=== PATIENT | female | born 1985 | race Caucasian/White ===

== ENCOUNTER 2017-07-05 10:36 | Emergency (ER) | payer OTHER ==
[2017-07-05 11:14] LABS: APPEARANCE HAZY (CLEAR); BILIRUBIN NEGATIVE (NEGATIVE); COLOR YELLOW (YELLOW); GLUCOSE NEGATIVE (NEGATIVE); KETONE NEGATIVE (NEGATIVE); NITRITE NEGATIVE (NEGATIVE); PROTEIN TRACE mg/dL (NEGATIVE); UROBILINOGEN NORMAL (NORMAL)
[2017-07-05 11:15] LABS: BACTERIA MODERATE /hpf (NONE SEEN); MUCUS <1+ /lpf (NONE SEEN); RED CELLS - URINE 0-5 /hpf (0-5); WHITE CELLS - URINE 0-5 /hpf (0-5)
== END 2017-07-05 12:13 | disposition home or self-care (01) ==
LOC: D.ER 10:36
PROVIDERS: Family Medicine
DX: N39.0 Urinary tract infection, site not specified (principal); R10.9 Unspecified abdominal pain; F17.200 Nicotine dependence, unspecified, uncomplicated

== ENCOUNTER 2018-07-10 18:07 | Emergency (ER) | payer OTHER ==
[~2018-07-10] VITALS: Ht 157.5 cm; Wt 77.7 kg
[2018-07-10 18:38] VITALS: Ht 157.5 cm; Wt 77.7 kg
[2018-07-10 18:54] LABS: APPEARANCE CLOUDY (CLEAR); BILIRUBIN NEGATIVE (NEGATIVE); COLOR YELLOW (YELLOW); GLUCOSE NEGATIVE (NEGATIVE); KETONE NEGATIVE (NEGATIVE); NITRITE NEGATIVE (NEGATIVE); PROTEIN TRACE mg/dL (NEGATIVE); UROBILINOGEN NORMAL (NORMAL)
[2018-07-10 18:56] LABS: BACTERIA MODERATE /hpf (NONE SEEN); RED CELLS - URINE 0-5 /hpf (0-5)
[2018-07-10] MEDS ORDERED: PHENAZOPYRIDIN200 MG PO (20:03)
[2018-07-10] MEDS ORDERED: VOLTAREN75 MG PO (20:03)
[2018-07-10] MEDS ORDERED: CIPRO500 MG PO (20:03)
[2018-07-10 20:19] VITALS: BP 120/71
== END 2018-07-10 20:19 | disposition home or self-care (01) ==
LOC: D.ER 18:07
PROVIDERS: Family Medicine
DX: N39.0 Urinary tract infection, site not specified (principal); R30.0 Dysuria; R35.0 Frequency of micturition; R50.9 Fever, unspecified; I50.9 Heart failure, unspecified; F17.200 Nicotine dependence, unspecified, uncomplicated

== ENCOUNTER 2019-12-29 18:20 | Emergency (ER) | payer OTHER ==
[~2019-12-29] VITALS: Ht 157.5 cm; Wt 87.3 kg
[~2019-12-29 18:20] MED LIST: CIPRO500 MG PO; PHENAZOPYRIDIN200 MG PO; VOLTAREN75 MG PO
[2019-12-29 18:41] VITALS: Ht 157.5 cm; Wt 87.3 kg
[2019-12-29] MEDS ORDERED: PHENAZOPYRIDIN200 MG PO (21:14)
[2019-12-29] MEDS ORDERED: MACROBID100 MG PO (21:14)
[2019-12-29 21:47] VITALS: BP 128/76
== END 2019-12-29 21:47 | disposition home or self-care (01) ==
LOC: D.ER 18:20
DX: N39.0 Urinary tract infection, site not specified (principal); R30.0 Dysuria; I50.9 Heart failure, unspecified; R34 Anuria and oliguria

== ENCOUNTER 2021-01-21 21:15 | Emergency (ER) | payer OTHER ==
[~2021-01-21] VITALS: Ht 157.5 cm; Wt 90.9 kg
[~2021-01-21 21:15] MED LIST changes: +MACROBID100 MG PO
[2021-01-21 21:53] VITALS: Ht 157.5 cm; Wt 90.9 kg
== END 2021-01-22 02:12 | disposition left against medical advice (07) ==
LOC: D.ER 21:15
DX: R10.10 Upper abdominal pain, unspecified (principal); I50.9 Heart failure, unspecified